=== PATIENT | male | born 2000 | race Caucasian/White ===

== ENCOUNTER 2019-11-02 22:56 | Emergency (ER) | payer OTHER ==
[~2019-11-02] VITALS: Ht 180.3 cm; Wt 103.4 kg
[2019-11-02] MEDS ORDERED: LIDOCAINE 2% W/EPIN INJ 20ML **PRES FREE INJ ONE (23:30)
[2019-11-03] MEDS ORDERED: CEPHALEXIN 500 MG CAP PO ONE (00:15)
[2019-11-03] MEDS ORDERED: KEFL500C17 PO (00:17)
[2019-11-03 00:41] VITALS: BP 121/56
--- NOTE | 2019-11-03 03:45 | REP ---
Clinical: Trauma. Technique: AP, lateral, bilateral oblique and sunrise views left knee . Findings: The osseous structures and joint spaces are intact and normal. There is no evidence for acute fracture or dislocation. No joint effusion is appreciated. Surrounding soft tissues are unremarkable. No subcutaneous emphysema or radiodense foreign body. Impression: Normal examination. No acute fracture or dislocation. Electronically Signed by Jose Manuel Avina MD 11/03/2019 03:37 A
== END 2019-11-03 00:43 | disposition home or self-care (01) ==
LOC: M ED 22:56
DX: S81.012A Laceration without foreign body, left knee, initial encounter (principal); S80.02XA Contusion of left knee, initial encounter; W22.8XXA Striking against or struck by other objects, initial encounter; Y92.89 Other specified places as the place of occurrence of the external cause; F17.210 Nicotine dependence, cigarettes, uncomplicated